=== PATIENT | female | born 1975 | race Caucasian/White ===

== ENCOUNTER 2022-12-22 12:16 | Emergency (ER) | payer OTHER ==
[~2022-12-22] VITALS: Ht 160 cm; Wt 55.3 kg
--- NOTE | 2022-12-22 12:20 | NUR ---
KILEY 87 FROM HOME C/O PALPITATIONS AND HYPERTENSION X 1 HR, PT DENIES CP.
--- NOTE | 2022-12-22 12:35 | NUR ---
DR> Reny at beside
--- NOTE | 2022-12-22 12:43 | NUR ---
CXR at bedside
--- NOTE | 2022-12-22 12:48 | NUR ---
Ekg at beside
[2022-12-22] MEDS ORDERED: IV NS 0.9% 500 ML BAG IV ONE (13:00)
[2022-12-22 13:09] LABS: BASOPHILS % (AUTO) 0.3 % (0.0-2.0); EOSINOPHILS % (AUTO) 0.2 % (0.0-6.0); HEMATOCRIT 45 % (33-45); HEMOGLOBIN 14.6 g/dL (11.5-14.8); LYMPHOCYTES # (AUTO) 0.8 K/uL (0.8-4.8); LYMPHOCYTES % (AUTO) 7.6 % (20.0-44.0); MEAN CORPUSCULAR HGB CONC 33 g/dl (31.0-36.0); MEAN CORPUSCULAR VOLUME 90 fL (82-100); MONOCYTES # (AUTO) 0.5 K/uL (0.1-1.30); MONOCYTES % (AUTO) 4.8 % (2.0-12.0); NEUTROPHILS # (AUTO) 9.1 K/uL (1.8-8.9); NEUTROPHILS % (AUTO) 87.1 % (43.0-81.0); PLATELET COUNT (AUTO) 286 K/uL (150-450); RED BLOOD CELL COUNT(AUTO) 4.93 MIL/uL (4.0-5.2); WHITE BLOOD COUNT (AUTO) 10.5 K/uL (4.3-11.0)
[2022-12-22 13:18] LABS: CALCIUM, SERUM 9.1 mg/dL (8.5-10.1); CARBON DIOXIDE 28 mmol/L (21-32); CHLORIDE 103 mmol/L (98-107); CREATININE 0.7 mg/dL (0.6-1.3); GLUCOSE 105 mg/dL (74-106); POTASSIUM 3.8 mmol/L (3.5-5.1); SODIUM SERUM 140 mmol/L (136-145); UREA NITROGEN, BLOOD 12 mg/dL (7-18)
--- NOTE | 2022-12-22 13:22 | NUR ---
DR. Oglesby made aware of High BP
--- NOTE | 2022-12-22 13:46 | NUR ---
Dr. Oglesby at bedside for re-eval.
[2022-12-22] MEDS ORDERED: METO25TA6 PO (13:47)
--- NOTE | 2022-12-22 13:55 | NUR ---
IV removed. Catheter intact and site benign. Pressure and 4x4 applied to site. No bleeding noted.dPatient discharged to home in stable condition. Written and verbal after care instructions given. Patient verbalizes understanding of instruction.
[2022-12-22 14:07] VITALS: BP 190/118
== END 2022-12-22 13:55 | disposition home or self-care (01) ==
LOC: ER 12:19
DX: I10 Essential (primary) hypertension (principal); R00.2 Palpitations
CPT/HCPCS: 99285; 71045; 93005 ×2; 85025; 80048; 36415; 84443; 84484; J7040